=== PATIENT | female | born 1980 | race Caucasian/White ===

== ENCOUNTER 2016-07-19 16:38 | Inpatient (IN) | payer MEDICAID, OTHER ==
[2016-07-19 18:00] VITALS: BMI 28.3
[2016-07-19] MEDS ORDERED: MINERAL OIL 25 ML BOT ONE (22:35)
[2016-07-19] MEDS ORDERED: OXYTOCIN 10 UNITS/ML VIAL ONE (22:35)
[2016-07-19] MEDS ORDERED: PUMP TUBING ONE (22:36)
[2016-07-19] MEDS ORDERED: OXYTOCIN IN LR 500 ML IV ONE (22:36)
[2016-07-19] MEDS ORDERED: LIDOCAINE Viscous 2% 15 ML UDCUP ONE (22:36)
[2016-07-19] MEDS ORDERED: LIDOCAINE 1% (PRES FREE) 30 ML VIAL ONE (22:36)
[2016-07-19] MEDS ORDERED: IV START KIT ONE (22:38)
[2016-07-19] MEDS ORDERED: SODIUM CHLORIDE 0.9% FLUSH 10 ML ONE (22:39)
[2016-07-19] MEDS ORDERED: FENTANYL 100 MCG/2 ML VIAL ONE (22:47)
[2016-07-19] MEDS ORDERED: FENTANYL 100 MCG/2 ML VIAL IV ONE (22:50)
--- NOTE | 2016-07-19 22:56 | PDOC36 ---
Provider Note Subject: CNM Progress note Note: S; Requesting pain medication. Contractions very painful. O: cntractions q 2-3/60/firm FHR 140's accels present, good variability, no decels Cx /-2 bulg bag A: Good progress P: Anticipate
--- NOTE | 2016-07-19 22:59 | PCMAN ---
OB Admission Note - History : 4 Term: 3 : 0 Abortions (S&E): 0 Livin Gestational Age (weeks): 39 Days (#/7): 5 Admit Cervical Dilation:: 3 Admit Cervical Effacement (%):: 100 Admit Station:: -3 Admit Presentaton:: vtx Membrane Status: Intact Labor Onset (Date): 07/19/16 Labor Onset (Time): 21:00 Contractions: Yes Contraction Frequency:: 1.5 - 2 Heart Rate:: 140 Status:: category 2 for occ variable decels, good variability and accels present EFW:: 8.5 lbs Summary of Course:: Began care at [facility] at 8 weeks. Had normal course with Rhogam at 28 weeks, normal glucose testing. Declined genetic screening or testing. Transferred to [facility] at 36 weeks for [place] delivery. Neg GBS. - Labs Blood Type: A (-) negative Hct/Hgb:: 10.8/33.7 Rubella Status: Immune GBS Status: Negative Abnormal Labs: None - Physical Exam Psych/Mental Status: Mood/Affect Appropriate Neurological: Grossly Intact Lungs: Clear to Auscultation Bilaterally Cardiovascular: Regular Rate and Rhythm Genitourinary: Normal Female Genitalia Rectal Exam: Deferred Extremities: Full ROM Skin: Normal Color, Warm, Dry - Problems (1) Active labor at term Status: Acute Code: [id number] Assessment/Plan: P: Anticipate
[2016-07-20] MEDS ORDERED: SODIUM CHLORIDE 0.9% 1,000 ML ONE (00:52)
[2016-07-20] MEDS ORDERED: PUMP TUBING ONE (00:52)
[2016-07-20] MEDS ORDERED: LACTATED RINGERS 1,000 ML ONE (01:23)
[2016-07-20] MEDS ORDERED: OXYTOCIN IN LR 500 ML IV PRN (01:34)
[2016-07-20] MEDS: LACTATED RINGERS 1,000 ML IV SCH ×2 (01:38→04:21)
--- NOTE | 2016-07-20 01:48 | PDOC36 ---
Provider Note Subject: Brief OB consult for recurrent variables @8cm dilation Note: 36y/o healthy multip all 8.5lbs infants. In spont labor at 39wks. Developed srom with mec and variables with approx 50% of u/c's in the last hour. Currently has category 2 strip, u/c's q3 min, baseline 140, moderate variability and variable decel to 70 with rapid recovery. Fetus displaying reserve and adeq recovery at this time. VE by me 8cm,-1 station, feels OA, 80% effaced. CNM did aminoinfusion and IUPC and consulted me regarding adding low dose to pitocin to intensify strength of u/c based on inadeq pressures with many of u/c's. Agree with low judious use of pitocin augmentation. OR crew in house and available.
[2016-07-20] MEDS ORDERED: FENTANYL 100 MCG/2 ML VIAL IV ONE (04:01)
--- NOTE | 2016-07-20 05:37 | PDOC36 ---
Provider Note Subject: CNM Progress Note Note: S: Pt reported need to push at midnight. O: Cx was rim/100/-1 with bulging bag dilating cx-head not applied to cx. AROM meconium. FHR 140 good variability, onset of variable decels with pushing. Decels initially 20-40 seconds with abril near 90, gradually increased in severity. Stopped pushing as unable to reduce cx. By 0115, decels less deep, moderate variability between contractions, baseline 150 O2 on and positions changed. Amnio-infusion and scalp electrode placed. Rodney Lundberg MD informed of progress, decels, poor quality labor. A: Poor labor quality, arrest of labor progress P: Pitocin augementation. OR crew in house in case baby does not tolerate. Will start at 1 mu and increase very slowly, depending on tolerance.
[2016-07-20] MEDS ORDERED: DOCUSATE SODIUM 100 MG CAPSULE PO PRN (06:53)
[2016-07-20] MEDS ORDERED: IBUPROFEN 800 MG TABLET PO SCH (06:53)
[2016-07-20] MEDS ORDERED: BENZOCAINE/MENTHOL 60 APPLIC/BOT TP PRN (06:53)
[2016-07-20] MEDS ORDERED: HYDROCODONE/ACETAMINOPHEN 5/325MG TABLET PO PRN (06:53)
[2016-07-20] MEDS ORDERED: LANOLIN 50 APPLIC/7G TUBE TP PRN (06:53)
[2016-07-20] MEDS ORDERED: CALCIUM CARBONATE 500 MG TAB.CHEW PO PRN (06:53)
[2016-07-20] MEDS ORDERED: RHOGAM 300 MCG SYRINGE IV ONE (10:02)
[2016-07-20] MEDS ORDERED: SODIUM CHLORIDE 0.9% FLUSH 10 ML ONE (13:47)
[2016-07-21] MEDS ORDERED: SODIUM CHLORIDE 0.9% FLUSH 10 ML ONE ×2 (02:06→09:37)
--- NOTE | 2016-07-21 06:19 | PCMDEL ---
Delivery Note - Labor 1st stage (hr/min):: 8 hrs 42 min 2nd stage (hr/min):: 0 hrs 10 min 3rd stage (hr/min):: 0 hrs 05 min Total (hr/min):: 8 hrs 57 min - Delivery Delivery (Date): 07/20/16 Delivery (Time): 05:52 Infant Gender: Female Weight: 8 lb 5 oz Length: 1 ft 8.5 in Presentation: Cephalic Position: OA Umbilical Cord: 3 Vessel, Body Cord, Nuchal Cord (x 2, tight) 1 Minute Total: 9 5 Minute Total: 9 Placenta:: sona, trailing membranes teased out EBL:: 450 Perineum:: 1st degree perineal Suture:: 4-0 vicryl, 1 stitch Anesthesia/Meds:: Fentanyl 100 mcg x 2 Length ROM:: 6 hours Comments:: Rapid when complete. Baby rotated ROT to OA on the perineum. Baby had 2 loops of nucal cord, tight and 1 loop of body cord- summersaulted and unwrapped after delivery. Lusty cry before cord completely unwrapped. Baby given to mother for skin to skin. Cord clamped after 3 minutes delayed cord clamping. Cord cut by FOB. Active management third stage of labor started after delivery of baby. Spontaneous delivery of orr placenta with trailing membranes, teased out. Placenta intact and complete. Straight cathed for 200 cc urine and repair of small first degree perineal laceration with 4-0 vicryl- 1 stitch. Excellent bonding.
[2016-07-21 08:30] VITALS: BP 110/72
--- NOTE | 2016-07-21 10:56 | PDOC39B ---
Hospital Course: ADMIT DATE: 07/19/16 DISCHARGE DATE: 07/21/16 ADMISSION DIAGNOSES: active labor at term PROCEDURES: HISTORY OF PRESENT ILLNESS: 35 year old G4 T3 L3 at 39 weeks 6 days presenting in active labor at term. Achieved a of a viable female infant. Stable course. HOSPITAL COURSE: By day of discharge the patient is ambulating, eating, voiding , and passing flatus without difficulty. Pain is controlled and lochia is appropriate. She is exclusively with no difficulty. She has good support at home from her and older children. She plans care with [facility]. Desires the Paragard IUD for contraception. She declines any Rx for going home. - Physical Exam Vital Signs: Temp Pulse Resp BP Pulse Ox 98.5 F 84 16 110/72 07/21/16 08:24 07/21/16 08:24 07/21/16 08:24 07/21/16 08:24 General: Afebrile Psych/Mental Status: Mood/Affect Appropriate, Judgment/Insight Intact, Bonding Well Lungs: Clear to Auscultation Bilaterally Cardiovascular: Regular Rate and Rhythm Breast: Soft, Skin intact, Nipples Intact Fundus: Firm, Midline, Below Umbilicus (1FB below) Genitourinary: Normal Female Genitalia (Minimal swelling) Lochia: Light Extremities: Full ROM Skin: Normal Color - Discharge Diagnosis (1) care following vaginal delivery Status: Acute Assessment/Plan: A: 35yo Day 1 Lochia stable going well-experienced breastfeeder P: Education: handout given and reviewed in [place]. Warning signs discussed. : encouraged on-demand feeds, [id number], follow-up at [facility] or WIC as needed Contraception: Paragard IUD at [facility]. Encouraged no unprotected IC prior to insertion Rx: none needed Follow-up: call [facility] to make appointment , or call CNM team PRN - Discharge Plan Condition: Stable Disposition: Home Additional Instructions: Felicidades por el nacimiento de Alexia! Llame a la clinica de [facility] para sacar kwan anai de siguimiento para usted y para la elisha. Si tiene alguna preocupacion o pregunta urgente, siempre puede llamar a las parteras del hospital a [phone].
== END 2016-07-21 11:43 | disposition home or self-care (01) | DRG 775 ==
LOC: FBC 16:38 → FBCOUT 16:38 → FBC 21:18
PROVIDERS: ADMIT Advanced Practice Midwife; ATTEND Advanced Practice Midwife
PROC: 10H07YZ Insertion of Other Device into Products of Conception, Via Natural or Artificial Opening (ICD-10-PCS; 2016-07-19)
PROC: 4A1H74Z Monitoring of Products of Conception, Cardiac Electrical Activity, Via Natural or Artificial Opening (ICD-10-PCS; 2016-07-19)
PROC: 10907ZC Drainage of Amniotic Fluid, Therapeutic from Products of Conception, Via Natural or Artificial Opening (ICD-10-PCS; 2016-07-19)
PROC: 0HQ9XZZ Repair Perineum Skin, External Approach (ICD-10-PCS; principal; 2016-07-20)
PROC: 10E0XZZ Delivery of Products of Conception, External Approach (ICD-10-PCS; 2016-07-20)
DX: O70.0 First degree perineal laceration during delivery (principal); O76 Abnormality in fetal heart rate and rhythm complicating labor and delivery; O77.0 Labor and delivery complicated by meconium in amniotic fluid; O62.1 Secondary uterine inertia; O69.81X0 Labor and delivery complicated by cord around neck, without compression, not applicable or unspecified; O09.43 Supervision of pregnancy with grand multiparity, third trimester; O09.523 Supervision of elderly multigravida, third trimester; Z3A.39 39 weeks gestation of pregnancy; Z37.0 Single live birth